=== PATIENT | male | born 1970 ===

== ENCOUNTER → 2017-12-28 | Outpatient (REF) | payer OTHER ==
[~2017-12-28] MED LIST: CALC-515 PO; DEXL60CA6 PO; IBUP200C74 PO; NAPR220C12 PO
[2017-12-28 18:03] LABS: PLATELET COUNT, AUTOMATED 243 K/uL (150-450)
== END ==
PROVIDERS: ATTEND Family Medicine
DX: Z00.00 Encounter for general adult medical examination without abnormal findings (principal); R07.9 Chest pain, unspecified
CPT/HCPCS: 82040; 82247; 82310; 82374; 82435; 82565; 82947; 84075; 84132; 84155; 84295; 84443; 84450; 84460; 84520; 85025; 86140

== ENCOUNTER → 2017-12-29 | Outpatient (CLI) | payer OTHER ==
[2017-12-29 13:15] LABS: PLATELET COUNT, AUTOMATED 232 K/uL (150-450)
--- NOTE | 2017-12-31 14:24 | RT HOLTER TEST ---
FACILITY: PATIENT NAME: LOREE JESUS : [id number] MR: [id number] V: [id number] EXAM DATE: ORDERING PHYSICIAN: LELE OTHER TECHNOLOGIST: FERNANDA Bañuelos-up date: 2017-12-29 13:22:00 Duration: 23:47:00 Test Indications: CHEST PAIN Medications: N/A [id number] QRS complexes 30 Ventricular ectopics which represent <1 % of total QRS comp. * Supraventricular ectopics which represent % of total QRS comp. * Paced QRS complexes which represent % of total QRS comp. VENTRICULAR ECTOPY 28 Isolated 0 Bigeminal Cycles 1 Couplets 0 Runs 0 Beats in Runs * Beats LONGEST at * BPM at :: -- * Beats FASTEST at * BPM at :: -- SUPRAVENTRICULAR ECTOPY * Isolated * Couplets * Runs * Beats in Runs * Beats LONGEST at * BPM at :: -- * Beats FASTEST at * BPM at :: -- HEART RATES 35 MIN at 04:38:49 2017-12-30 75 AVG 113 MAX at 18:27:39 2017-12-29 LONGEST RR 2.368 secs at 06:46:06 2017-12-30 S-T LEVELS Channel 1 -12.800 mm MIN at 13:22:00 2017-12-29 -12.800 mm MAX at 13:22:00 2017-12-29 Channel 2 -12.800 mm MIN at 13:22:00 2017-12-29 -12.800 mm MAX at 13:22:00 2017-12-29 Channel 3 -12.800 mm MIN at 13:22:00 2017-12-29 -12.800 mm MAX at 13:22:00 2017-12-29 Sinus rhythm Intermittent Premature ventricular complexes T waves Inversion Confirmed by AMY MARIE ([id number]) on 12/31/2017 2:23:01 PM Referred By: Overread By: AMY MARIE
== END ==
LOC: RESP 12:59
PROVIDERS: ATTEND Family Medicine
DX: Z00.00 Encounter for general adult medical examination without abnormal findings (principal); R07.9 Chest pain, unspecified
CPT/HCPCS: 36415; 82040; 82247; 82310; 82374; 82435; 82565; 82947; 84075; 84132; 84155; 84295; 84443; 84450; 84460; 84520; 85025; 86140; 93225; 93226

== ENCOUNTER 2018-11-30 16:26 | Outpatient (RCR) | payer OTHER ==
--- NOTE | 2018-11-16 17:53 | PT INITIAL EVALUATION ---
MEDICAL DIAGNOSIS: neck pain TREATMENT DIAGNOSIS: same, low back pain DATE OF ONSET: 11/05/14 SUBJECTIVE: Gus lPaza presents to physical therapy with complaints of neck pain and low back pain. He reports that the neck pain started approximately 4 years ago without any mechanism of injury. 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 He reports that he would like to address the neck first and then the low back pain. He reports that he receives minutes relief with his self massage stick; otherwise, he reports that he has constant neck pain that has not gotten better over the last four years. He reports that he feels like the pain is unchanging. He reports that he has tried chiropractor care with no results. He reports that he tried general stretching or strengthening and that has not helped. He reports that he had an xray. He denies any recent surgeries or accidents. He denies any decrease in shoulder, elbow, or hand strength. Furthermore, he denies any numbness or tingling. He rates his current pain to be 3-4/10 and describes it to be distracting. He reports that his neck feels better with increased posture and worse with slouching. Pain location is C5-7 with radiating pain in to R inferior portion of his scapulae and described as . Pain scale is 4 on a ten point pain scale. REHAB PROBLEM LIST: Increased Pain Decreased ROM Decreased Strength Decreased Endurance Decreased Function PREVIOUS MEDICAL HISTORY: See EMR OCCUPATION: Service Member OBJECTIVE: Posture: He demonstrates minimal forward head, minimal B rounded shoulders, minimal thoracic kyphosis, and minimal decreased lumbar lordosis. ROM: Cervical AROM: flexion: minimal restriction with painful end feel. extension: NIL with R sided cervical pain, R rotation: minimal restriction with muscular end feel. L rotation: minimal restriction with painful end feel. protrusion: NIL with normal end feel. retraction: NIL with normal end feel. R sidebending: moderate restriction with painful end feel. L sidebending: moderate restriction with painful end feel. Palpation: TTP: central C5-7 with radiating pain in to R inferior portion of his scapulae Sensation: Intact C2-T1 Special Tests: Repeated RET: increased pain and peripheralized his pain into R scapulae. Repeated RET with extension: increased pain and further peripheralized his pain into R scapulae. Repeated flexion: increased pain and centralized his pain and increased cervical AROM in all directions. Mobility: Independent Gait: No deviations were noted ASSESSMENT: Gus will benefit from skilled physical therapy addressing the listed impairments to improve function and QOL. His provisional classification is anterior derangement that has centralized and increased cervical AROM and normalized end feels with flexion based principles applied to his derangement. Short Term Goals 2 weeks: Pt will demonstrate directional preference and centralized cervical spine pain to improve function and QOL. 4 weeks: Pt will demonstrate abolished cervical pain to improve function and QOL. 4 weeks: Pt will demonstrate directional preference and centralized low back pain to improve function QOL. 6 weeks: Pt will demonstrate abolished cervical pain and return to prior level of function to improve function and QOL. 6 weeks: Pt will demonstrate abolished low back pain to improve function and QOL. 8 weeks: Pt will demonstrate abolished low back pain and return to prior level of function to improve function and QOL. Patient's Goals to get rid of pain in neck and low back PLAN: Patient to be seen for Manual Therapy/STM/MET Strengthening/condition Range of Motion Spinal Stabilization Work Hardening/Cond Stretching Neuromuscular Re-ed Closed Chain Program Posture/Body mechanics Home Exercise Program Therapeutic Activities 2x/Week for 2 Months If you have any questions, comments, or concerns about this report or plan, please contact me at . Thank you, Miguel Srinivasan, PT, DPT MTDD
--- NOTE | 2019-01-06 14:16 | PT PLAN OF CARE ---
Physician: Khari Fragoso MD Patient is being seen: 2x/week Therapist: Miguel Srinivasan, PT, DPT Medical Diagnosis: neck pain Treatment Diagnosis: same, low back pain Date of Onset: 11/05/14 Date of Initial Evaluation: 11/15/18 Date patient was last seen: 12/06/18 Number of treatments: 5 Number of cancellations/No shows: 1 INTERVENTIONS: Manual Therapy/STM/MET Strengthening/condition Range of Motion Spinal Stabilization Work Hardening/Cond Stretching Neuromuscular Re-ed Closed Chain Program Posture/Body mechanics Home Exercise Program Therapeutic Activities GOALS: 2 weeks: Pt will demonstrate directional preference and centralized cervical spine pain to improve function and QOL. 4 weeks: Pt will demonstrate abolished cervical pain to improve function and QOL. 4 weeks: Pt will demonstrate directional preference and centralized low back pain to improve function QOL. 6 weeks: Pt will demonstrate abolished cervical pain and return to prior level of function to improve function and QOL. 6 weeks: Pt will demonstrate abolished low back pain to improve function and QOL. 8 weeks: Pt will demonstrate abolished low back pain and return to prior level of function to improve function and QOL. PATIENT'S GOAL: to get rid of pain in neck and low back Status of Patient's Goals: minimal progression Patient Compliance: Good Prognosis: Good Reasons for continuing therapy: This is a discharge note for Gus Plaza. He did not demonstrate a directional preference; therefore, we did not make any significant changes on his cervical spine pain. He is independent on a home exercise program. As a result, he will be discharged from PT. Posture: He demonstrates minimal forward head, minimal B rounded shoulders, minimal thoracic kyphosis, and minimal decreased lumbar lordosis. ROM: Cervical AROM: flexion: minimal restriction with painful end feel. extension: NIL with R sided cervical pain, R rotation: minimal restriction with muscular end feel. L rotation: minimal restriction with painful end feel. protrusion: NIL with normal end feel. retraction: NIL with normal end feel. R sidebending: moderate restriction with painful end feel. L sidebending: moderate restriction with painful end feel. Strength: Palpation: TTP: central C5-7 with radiating pain in to R inferior portion of his scapulae Special Tests: Repeated RET: increased pain and peripheralized his pain into R scapulae. Repeated RET with extension: increased pain and further peripheralized his pain into R scapulae. Repeated flexion: increased pain and centralized his pain and increased cervical AROM in all directions. Mobility: Independent If you have any questions, please contact me at [phone] Thank you, Miguel Srinivasan, PT, DPT ROBERTO
== END 2018-11-30 18:00 | disposition home or self-care (01) ==
LOC: PT 16:26
PROVIDERS: ATTEND Orthopaedic Surgery
DX: M54.2 Cervicalgia (principal); M54.5 Low back pain
CPT/HCPCS: 97161